=== PATIENT | female | born 1995 | race Caucasian/White ===

== ENCOUNTER 2018-12-21 16:30 | Emergency (ER) | payer OTHER ==
[2018-12-21] MEDS ORDERED: NACL 0.9% 500 ML 500 ML IV ONE (16:43)
[2018-12-21] MEDS ORDERED: TYLENOL PO ONE (16:44)
[2018-12-21] MEDS ORDERED: TYLENOL ONE (16:46)
--- NOTE | 2018-12-21 16:46 | Emergency Department Report ---
Chief Complaint: Sore Throat Stated Complaint: FLU SYMPTOMS Time Seen by Provider: 12/21/18 16:42 - HPI History of Present Illness: This is a 23 y.o. F that present to the ER with sore throat and myalgia x 3 days. Currently taking OTC cold and flu medication. LMP 11/28/18 - Exam Vital Signs: Vital Signs 12/21/18 16:41 Temperature 102.2 F H Pulse Rate 126 H Respiratory 20 Rate Blood Pressure 131/81 O2 Sat by Pulse 99 Oximetry MSE screening note: Focused history and physical exam performed. Due to findings the following was ordered: This initial assessment/diagnostic orders/clinical plan/treatment(s) is/are subject to change based on patient's health status, clinical progression and re- assessment by fellow clinical providers in the ED. Further treatment and workup at subsequent clinical providers discretion. Patient/guardians urged not to elope from the ED as their condition may be serious if not clinically assessed and managed. Initial orders include: 1- Patient sent to Main ED for further evaluation and treatment 2- Given Tylenol 975 mg po 3- Labs ED Disposition for MSE Condition: Stable
[2018-12-21 17:23] LABS: Basophils % (Auto) 0.2 % (0.0-1.8); Eosinophils % (Auto) 0.1 % (0.0-4.3); Hematocrit 39.4 % (30.3-42.9); Hemoglobin 13.5 gm/dl (10.1-14.3); Lymphocytes # (Auto) 1.3 K/mm3 (1.2-5.4); Lymphocytes % (Auto) 10.4 % (13.4-35.0); Mean Corpuscular HGB Conc 34 % (30-34); Mean Corpuscular Volume 90 fl (79-97); Monocytes # (Auto) 1.4 K/mm3 (0.0-0.8); Monocytes % (Auto) 11.1 % (0.0-7.3); Platelet Count 209 K/mm3 (140-440); Red Blood Count 4.37 M/mm3 (3.65-5.03); Red Cell Distribution Width 12.6 % (13.2-15.2)
[2018-12-21 17:31] LABS: Bilirubin,Urine NEG (Negative); Blood,Urine MOD (Negative); Color,Urine Amber (Yellow); Mucus,Urine 3+ /HPF
[2018-12-21] MEDS ORDERED: NACL 0.9% 1000 ML 1,000 ML IV ONE (17:34)
[2018-12-21] MEDS ORDERED: LIDOCAINE VISCOUS 2% PO ONE (17:34)
[2018-12-21] MEDS ORDERED: TORADOL IV ONE (17:34)
[2018-12-21] MEDS ORDERED: NACL 0.9% 1000 ML 2,000 ML IV ONE (17:34)
--- NOTE | 2018-12-21 17:35 | Emergency Department Report ---
<DENISSE DOAN - Last Filed: 12/21/18 19:49> ED General Adult HPI - General Chief complaint: Sore Throat Stated complaint: FLU SYMPTOMS Time Seen by Provider: 12/21/18 16:42 Source: patient, RN notes reviewed Mode of arrival: Ambulatory Limitations: No Limitations - History of Present Illness Initial comments: This is a 23-year-old female. The patient is not known to this provider previously. She does not have a local primary care doctor. She has no chronic medical conditions. She does not believe that she is . She presents to the emergency room with 3-4 days of sore throat, body aches, frontal headache, m alaise, fatigue, myalgias, discomfort. Symptoms present for the past 3-4 days, constant, did not radiate anywhere, decreased with IV fluids and antipyretic medication. No response with [id number] remedies. -: Gradual, days(s) Location: head, face, mouth, back, left, right, upper extremity, lower extremity Radiation: non-radiation Severity scale (0 -10): 10 Quality: aching Consistency: other Improves with: other Worsens with: other - Related Data Previous Rx's Medication Instructions Recorded Last Taken Type Acetaminophen [Non-Aspirin Extra 500 mg PO Q6HR PRN #30 tablet 12/21/18 Unknown Rx Strength] Ibuprofen [Motrin] 600 mg PO Q8H PRN #30 tablet 12/21/18 Unknown Rx Penicillin V Potassium 500 mg PO BID #20 tablet 12/21/18 Unknown Rx Allergies Allergy/AdvReac Type Severity Reaction Status Date / Time No Known Allergies Allergy Unverified 12/21/18 16:35 ED Review of Systems Constitutional: fever, malaise, weakness Eyes: denies: eye discharge ENT: throat pain, congestion Respiratory: cough Cardiovascular: denies: syncope Gastrointestinal: denies: abdominal pain Genitourinary: denies: dysuria Musculoskeletal: arthralgia, myalgia Skin: denies: lesions Neurological: headache, weakness Psychiatric: anxiety ED Past Medical Hx - Past Medical History Previous Medical History?: No - Surgical History Past Surgical History?: No - Social History Smoking Status: Never Smoker Substance Use Type: None - Medications Home Medications: Home Medications Medication Instructions Recorded Confirmed Last Taken Type Acetaminophen [Non-Aspirin Extra 500 mg PO Q6HR PRN #30 tablet 12/21/18 Unknown Rx Strength] Ibuprofen [Motrin] 600 mg PO Q8H PRN #30 tablet 12/21/18 Unknown Rx Penicillin V Potassium 500 mg PO BID #20 tablet 12/21/18 Unknown Rx ED Physical Exam - General Limitations: No Limitations General appearance: alert, in no apparent distress - Head Head exam: Present: atraumatic, normocephalic - Eye Eye exam: Present: normal appearance, EOMI. Absent: nystagmus - ENT ENT exam: Present: mucous membranes moist, TM's normal bilaterally, normal exte rnal ear exam, other (patient has erythematous and white exudates on tonsils. The patient is speaking in full sentences. There is no stridor.). Absent: normal orophraynx - Neck Neck exam: Present: normal inspection, full ROM, lymphadenopathy. Absent: tenderness, meningismus - Respiratory Respiratory exam: Present: normal lung sounds bilaterally. Absent: respiratory distress - Cardiovascular Cardiovascular Exam: Present: normal rhythm, tachycardia, normal heart sounds. Absent: systolic murmur, diastolic murmur, rubs, gallop - GI/Abdominal GI/Abdominal exam: Present: soft. Absent: distended, tenderness, guarding, rebound, rigid, pulsatile mass - Extremities Exam Extremities exam: Present: normal inspection, full ROM, other (2+ pulses noted in the bilateral upper, lower extremities. Compartments soft. No long bony tenderness. The pelvis is stable.). Absent: pedal edema, joint swelling, calf tenderness - Back Exam Back exam: Present: normal inspection, full ROM. Absent: tenderness, CVA tenderness (R), CVA tenderness (L), paraspinal tenderness, vertebral tenderness - Neurological Exam Neurological exam: Present: alert, oriented X3, normal gait, other (Extraocular movements intact. Tongue midline. No facial droop. Facial sensation intact to light touch in the V1, V2, V3 distribution bilaterally. 5 and 5 strength in 4 extremities.. Sensation is intact to light touch in 4 extremities.). Absent: motor sensory deficit - Psychiatric Psychiatric exam: Present: normal affect, normal mood - Skin Skin exam: Present: warm, dry, intact, normal color. Absent: rash ED Course - Reevaluation(s) Reevaluation #1: 12/21/18 19:51 Differential diagnosis, including not limited to: Viral syndrome, strep pharyngitis Assessment and plan: 23-year-old female with fever, tachycardia, white exudates on posterior oropharynx, lymphadenopathy, suspicious for pharyngitis. Rapid strep screen is negative, however, I find the patient to be high probability by the Cent[facility] criteria, and we will treat empirically with appropriate antibiotics. Patient has defervescence, tachycardia is improving. The patient is speaking in full sentences, with no evidence of imminent airway compromise. Urinalysis reviewed and appreciated, the patient does not endorse any urinary symptoms. She does not have any CVA tenderness. Do not clinically suspect urinary tract infection. Care will be transferred to the oncoming ER physician, Dr. Brendan Horne, to reassess and discharge once tachycardia has resolved. ED Medical Decision Making - Lab Data Result diagrams: 12/21/18 16:53 12/21/18 16:53 Vital Signs 12/21/18 12/21/18 12/21/18 16:41 17:36 17:39 Temperature 102.2 F H 103 F H Pulse Rate 126 H 131 H 130 H Respiratory 20 16 Rate Blood Pressure 131/81 Blood Pressure 124/71 [Right] O2 Sat by Pulse 99 100 Oximetry 12/21/18 12/21/18 12/21/18 17:46 18:00 18:16 Temperature Pulse Rate 123 H 124 H 118 H Respiratory 19 21 15 Rate Blood Pressure 124/71 124/71 119/67 Blood Pressure [Right] O2 Sat by Pulse 96 99 98 Oximetry 12/21/18 12/21/18 12/21/18 18:30 18:40 19:39 Temperature 100.2 F H Pulse Rate 121 H 116 H Respiratory 15 23 Rate Blood Pressure 119/67 119/77 Blood Pressure 119/77 [Right] O2 Sat by Pulse 99 98 Oximetry 12/21/18 19:41 Temperature 99.1 F Pulse Rate Respiratory Rate Blood Pressure Blood Pressure [Right] O2 Sat by Pulse Oximetry Lab Results 12/21/18 12/21/18 12/21/18 Range/Units 16:53 16:53 16:53 WBC 12.4 H (4.5-11.0) K/mm3 RBC 4.37 (3.65-5.03) M/mm3 Hgb 13.5 (10.1-14.3) gm/dl Hct 39.4 (30.3-42.9) % MCV 90 (79-97) fl MCH 31 (28-32) pg MCHC 34 (30-34) % RDW 12.6 L (13.2-15.2) % Plt Count 209 (140-440) K/mm3 Lymph % (Auto) 10.4 L (13.4-35.0) % Beltrami % (Auto) 11.1 H (0.0-7.3) % Eos % (Auto) 0.1 (0.0-4.3) % Baso % (Auto) 0.2 (0.0-1.8) % Lymph # 1.3 (1.2-5.4) K/mm3 Beltrami # 1.4 H (0.0-0.8) K/mm3 Eos # 0.0 (0.0-0.4) K/mm3 Baso # 0.0 (0.0-0.1) K/mm3 Seg Neutrophils % 78.2 H (40.0-70.0) % Seg Neutrophils # 9.7 H (1.8-7.7) K/mm3 PT 13.5 (12.2-14.9) Sec. INR 0.97 (0.87-1.13) VBG pH (7.320-7.420) Sodium 136 L (137-145) mmol/L Potassium 3.8 (3.6-5.0) mmol/L Chloride 98.3 (98-107) mmol/L Carbon Dioxide 25 (22-30) mmol/L Anion Gap 17 mmol/L BUN 9 (7-17) mg/dL Creatinine 0.4 L (0.7-1.2) mg/dL Estimated GFR > 60 ml/min BUN/Creatinine Ratio 23 % Glucose 118 H (65-100) mg/dL Lactic Acid (0.7-2.0) mmol/L Calcium 9.3 (8.4-10.2) mg/dL Total Bilirubin 0.40 (0.1-1.2) mg/dL AST 20 (5-40) units/L ALT 25 (7-56) units/L Alkaline Phosphatase 44 (35-129) units/L Total Creatine Kinase (30-135) units/L Total Protein 7.3 (6.3-8.2) g/dL Albumin 3.9 (3.9-5) g/dL Albumin/Globulin Ratio 1.1 % Urine Color (Yellow) Urine Turbidity (Clear) Urine pH (5.0-7.0) Ur Specific Cochran (1.003-1.030) Urine Protein (Negative) mg/dL Urine Glucose (UA) (Negative) mg/dL Urine Ketones (Negative) mg/dL Urine Blood (Negative) Urine Nitrite (Negative) Urine Bilirubin (Negative) Urine Urobilinogen (<2.0) mg/dL Ur Leukocyte Esterase (Negative) Urine WBC (Auto) (0.0-6.0) /HPF Urine RBC (Auto) (0.0-6.0) /HPF U Epithel Cells (Auto) (0-13.0) /HPF Urine Mucus /HPF Urine HCG, Qual (Negative) Group A Strep Rapid (Negative) 12/21/18 12/21/18 12/21/18 Range/Units 16:53 16:53 17:05 WBC (4.5-11.0) K/mm3 RBC (3.65-5.03) M/mm3 Hgb (10.1-14.3) gm/dl Hct (30.3-42.9) % MCV (79-97) fl MCH (28-32) pg MCHC (30-34) % RDW (13.2-15.2) % Plt Count (140-440) K/mm3 Lymph % (Auto) (13.4-35.0) % Bel[place]ami % (Auto) (0.0-7.3) % Eos % (Auto) (0.0-4.3) % Baso % (Auto) (0.0-1.8) % Lymph # (1.2-5.4) K/mm3 Beltrami # (0.0-0.8) K/mm3 Eos # (0.0-0.4) K/mm3 Baso # (0.0-0.1) K/mm3 Seg Neutrophils % (40.0-70.0) % Seg Neutrophils # (1.8-7.7) K/mm3 PT (12.2-14.9) Sec. INR (0.87-1.13) VBG pH 7.401 (7.320-7.420) Sodium (137-145) mmol/L Potassium (3.6-5.0) mmol/L Chloride (98-107) mmol/L Carbon Dioxide (22-30) mmol/L Anion Gap mmol/L BUN (7-17) mg/dL Creatinine (0.7-1.2) mg/dL Estimated GFR ml/min BUN/Creatinine Ratio % Glucose (65-100) mg/dL Lactic Acid 2.00 (0.7-2.0) mmol/L Calcium (8.4-10.2) mg/dL Total Bilirubin (0.1-1.2) mg/dL AST (5-40) units/L ALT (7-56) units/L Alkaline Phosphatase (35-129) units/L Total Creatine Kinase (30-135) units/L Total Protein (6.3-8.2) g/dL Albumin (3.9-5) g/dL Albumin/Globulin Ratio % Urine Color Haley (Yellow) Urine Turbidity Slightly-cloudy (Clear) Urine pH 5.0 (5.0-7.0) Ur Specific Cochran 1.031 H (1.003-1.030) Urine Protein 30 mg/dl (Negative) mg/dL Urine Glucose (UA) Neg (Negative) mg/dL Urine Ketones Neg (Negative) mg/dL Urine Blood Mod (Negative) Urine Nitrite Neg (Negative) Urine Bilirubin Neg (Negative) Urine Urobilinogen 4.0 (<2.0) mg/dL Ur Leukocyte Esterase Tr (Negative) Urine WBC (Auto) 14.0 H (0.0-6.0) /HPF Urine RBC (Auto) 16.0 (0.0-6.0) /HPF U Epithel Cells (Auto) 4.0 (0-13.0) /HPF Urine Mucus 3+ /HPF Urine HCG, Qual (Negative) Group A Strep Rapid (Negative) 12/21/18 12/21/18 12/21/18 Range/Units 17:30 17:39 19:06 WBC (4.5-11.0) K/mm3 RBC (3.65-5.03) M/mm3 Hgb (10.1-14.3) gm/dl Hct (30.3-42.9) % MCV (79-97) fl MCH (28-32) pg MCHC (30-34) % RDW (13.2-15.2) % Plt Count (140-440) K/mm3 Lymph % (Auto) (13.4-35.0) % [place] % (Auto) (0.0-7.3) % Eos % (Auto) (0.0-4.3) % Baso % (Auto) (0.0-1.8) % Lymph # (1.2-5.4) K/mm3 [place] # (0.0-0.8) K/mm3 Eos # (0.0-0.4) K/mm3 Baso # (0.0-0.1) K/mm3 Seg Neutrophils % (40.0-70.0) % Seg Neutrophils # (1.8-7.7) K/mm3 PT (12.2-14.9) Sec. INR (0.87-1.13) VBG pH (7.320-7.420) Sodium (137-145) mmol/L Potassium (3.6-5.0) mmol/L Chloride (98-107) mmol/L Carbon Dioxide (22-30) mmol/L Anion Gap mmol/L BUN (7-17) mg/dL Creatinine (0.7-1.2) mg/dL Estimated GFR ml/min BUN/Creatinine Ratio % Glucose (65-100) mg/dL Lactic Acid (0.7-2.0) mmol/L Calcium (8.4-10.2) mg/dL Total Bilirubin (0.1-1.2) mg/dL AST (5-40) units/L ALT (7-56) units/L Alkaline Phosphatase (35-129) units/L Total Creatine Kinase 44 (30-135) units/L Total Protein (6.3-8.2) g/dL Albumin (3.9-5) g/dL Albumin/Globulin Ratio % Urine Color (Yellow) Urine Turbidity (Clear) Urine pH (5.0-7.0) Ur Specific Cochran (1.003-1.030) Urine Protein (Negative) mg/dL Urine Glucose (UA) (Negative) mg/dL Urine Ketones (Negative) mg/dL Urine Blood (Negative) Urine Nitrite (Negative) Urine Bilirubin (Negative) Urine Urobilinogen (<2.0) mg/dL Ur Leukocyte Esterase (Negative) Urine WBC (Auto) (0.0-6.0) /HPF Urine RBC (Auto) (0.0-6.0) /HPF U Epithel Cells (Auto) (0-13.0) /HPF Urine Mucus /HPF Urine HCG, Qual Negative (Negative) Group A Strep Rapid Negative (Negative) - EKG Data -: EKG Interpreted by Or - EKG Data 12/21/18 19:53 EKG shows sinus tachycardia, atraumatic, borderline rightward axis, QTC within normal limits, nonspecific T-wave abnormalities, atrial enlargement? This EKG is not consistent with ST elevation myocardial infarction. There is no prior EKG available for comparison. - Radiology Data Radiology results: report reviewed, image reviewed X-ray of the chest is negative for acute disease ED Disposition Clinical Impression: Acute febrile illness, Exudative pharyngitis Disposition: TO HOME OR SELFCARE Is pt being admited?: No Does the pt Need Aspirin: No Condition: Stable Instructions: Pharyngitis (ED) Additional Instructions: Take the pain medications as needed/directed. Take antibiotic therapy as directed. Cultures was sent today, and results of the available in the next 3-5 days. Please have your primary care doctor contact the medical records department to obtain culture results. Urinalysis screen demonstrated nonspecific nonemergent abnormalities. These should be followed up by her primary care doctor or relief map modeler within the next 7-10 days. Please follow up for repeat evaluation, either at an urgent care center, with a primary care doctor, or return to this emergency room in 2-3 days for repeat checkup/evaluation. Please return to this emergency room right away with new pain, worsened pain, migration of pain, projectile vomiting, change in mental status, confusion, inability to tolerate liquid feeds, new, worsening or different symptoms. Prescriptions: Ibuprofen [Motrin] 600 mg PO Q8H PRN #30 tablet PRN Reason: Pain Acetaminophen [Non-Aspirin Extra Strength] 500 mg PO Q6HR PRN #30 tablet PRN Reason: Pain , Severe (7-10) Penicillin V Potassium 500 mg PO BID #20 tablet Referrals: [facility] [Primary Care Provider] - 3-5 Days [facility] [Provider Group] - 3-5 Days [facility] [Provider Group] - 3-5 Days <HARLAN HORNE - Last Filed: 12/21/18 21:06> ED Review of Systems ROS: Stated complaint: FLU SYMPTOMS Other details as noted in HPI ED Course Vital Signs 12/21/18 12/21/18 12/21/18 16:41 17:36 17:39 Temperature 102.2 F H 103 F H Pulse Rate 126 H 131 H 130 H Respiratory 20 16 Rate Blood Pressure 131/81 Blood Pressure 124/71 [Right] O2 Sat by Pulse 99 100 Oximetry 12/21/18 12/21/18 12/21/18 17:46 18:00 18:16 Temperature Pulse Rate 123 H 124 H 118 H Respiratory 19 21 15 Rate Blood Pressure 124/71 124/71 119/67 Blood Pressure [Right] O2 Sat by Pulse 96 99 98 Oximetry 12/21/18 12/21/18 12/21/18 18:30 18:40 19:39 Temperature 100.2 F H Pulse Rate 121 H 116 H Respiratory 15 23 Rate Blood Pressure 119/67 119/77 Blood Pressure 119/77 [Right] O2 Sat by Pulse 99 98 Oximetry 12/21/18 19:41 Temperature 99.1 F Pulse Rate Respiratory Rate Blood Pressure Blood Pressure [Right] O2 Sat by Pulse Oximetry ED Medical Decision Making - Lab Data Result diagrams: 12/21/18 16:53 12/21/18 16:53 - Medical Decision Making Karlene is a very pleasant female treated by my colleague Dr. Doan for exudative pharyngitis whichis confirmed by my brief exam. Tachycardia resolved after receiving 3 L normal saline. She had mild headache upon my reassessment but overall felt much better. She is discharged home with return precautions. Critical care attestation.: If time is entered above; I have spent that time in minutes in the direct care of this critically ill patient, excluding procedure time. ED Disposition Is pt being admited?: No Does the pt Need Aspirin: No
[2018-12-21 17:37] LABS: INR 0.97 (0.87-1.13)
[2018-12-21 17:39] LABS: Alanine Aminotransferase 25 units/L (7-56); Albumin 3.9 g/dL (3.9-5); BUN/Creatinine Ratio 23; Blood Urea Nitrogen 9 mg/dL (7-17); Calcium 9.3 mg/dL (8.4-10.2); Hemolysis Index 9
--- NOTE | 2018-12-21 18:05 | XRay Report ---
PROCEDURE: XR CHEST 1V AP TECHNIQUE: Chest radiograph single view. HISTORY: possible Sepsis COMPARISONS: None . FINDINGS: Heart: Normal. Mediastinum/Vessels: Normal. Lungs/Pleural space: Normal. Bony thorax: No acute osseous abnormality. Life support devices: None. IMPRESSION: No acute cardiopulmonary abnormality. This document is electronically signed by Martin Del Castillo MD., Dec 21 2018 06:03:24 PM ET
[2018-12-21 19:30] LABS: HCG Qualitative,Urine Negative (Negative)
[2018-12-21] MEDS ORDERED: VEETIDS PO ONE (19:57)
[2018-12-21 21:07] VITALS: BP 127/73
[2018-12-21] MEDS ORDERED: TYLENOL PO SCH (21:30)
== END 2018-12-21 21:07 | disposition home or self-care (01) ==
LOC: ED 16:30
DX: J02.9 Acute pharyngitis, unspecified (principal)
CPT/HCPCS: 36415; 71045; 80053; 81001; 81025; 82140; 82550; 82805; 85025; 85610; 87086; 87116; 87430; 93005; 93010; 96374; 99285; J1885; J7030

== ENCOUNTER 2020-03-20 13:56 | Emergency (ER) | payer SELFPAY ==
--- NOTE | 2020-03-20 14:38 | Event Note ---
ED Screening Note Date of service: 03/20/20 Time: 14:36 ED Screening Note: episode of chest pain, SOB, headache, anxiety at 1:20 that lasted 5 minutes. denies pmhx. IS taking metronidazole for BV. No OCP Denies allergies to medications. Fhx no CAD This initial assessment/diagnostic orders/clinical plan/treatment(s) is/are subject to change based on patients health status, clinical progression and re- assessment by fellow clinical providers in the ED. Further treatment and workup at subsequent clinical providers discretion. Patient/guardian urged not to elope from the ED as their condition may be serious if not clinically assessed and managed. Initial orders include: blood, EKG, chest x-ray
--- NOTE | 2020-03-20 15:47 | Emergency Department Report ---
ED Chest Pain HPI - General Chief Complaint: Chest Pain Stated Complaint: CHEST PAIN, HEADACHE,KAN Time Seen by Provider: 03/20/20 14:55 Source: patient Mode of arrival: Ambulatory Limitations: No Limitations - History of Present Illness Initial Comments: 31-year-old female patient presents with complaints of an episode of left-sided chest pain with shortness of breath x today. Patient states that she has been having intermittent episodes of chest pain for 3 to 4 months. She states today the episode was worse because it lasted longer than normal. She denies any cough, hemoptysis, fever/chills/sweats, leg pain/swelling, history of DVT/PE/cancer, hormone use, or recent long travel. She she reports at current, her pain is not present and she denies any current shortness of breath. She does admit that the episodes seem to occur when she is stressed, however she denies any previous diagnosis of anxiety. Patient reports the pain is normally left-sided or substernal and describes it as a prickling type pain. She denies any personal or family history of heart disease or structural abnormalities - Related Data Previous Rx's Medication Instructions Recorded Last Taken Type Acetaminophen [Non-Aspirin Extra 500 mg PO Q6HR PRN #30 tablet 12/21/18 Unknown Rx Strength] Ibuprofen [Motrin] 600 mg PO Q8H PRN #30 tablet 12/21/18 Unknown Rx Penicillin V Potassium 500 mg PO BID #20 tablet 12/21/18 Unknown Rx Allergies Allergy/AdvReac Type Severity Reaction Status Date / Time No Known Allergies Allergy Unverified 12/21/18 16:35 Heart Score - HEART Score History: Slightly suspicious EKG: Normal Age: < 45 Risk factors: 1-2 risk factors Troponin: < normal limit HEART Score: 1 - Critical Actions Critical Actions: 0-3 pts:0.9-1.7%risk of adverse cardiac event.Candidate for discharge ED Review of Systems ROS: Stated complaint: CHEST PAIN, HEADACHE,KAN Other details as noted in HPI Constitutional: denies: chills, diaphoresis, fever, malaise, weakness Eyes: denies: vision change Respiratory: see HPI. denies: cough Cardiovascular: denies: as per HPI, edema, syncope Gastrointestinal: denies: abdominal pain, nausea, vomiting Musculoskeletal: denies: joint swelling, arthralgia Skin: denies: change in color Neurological: denies: headache Hematological/Lymphatic: denies: swollen glands ED Past Medical Hx - Past Medical History Previous Medical History?: No - Surgical History Past Surgical History?: No - Social History Smoking Status: Never Smoker - Medications Home Medications: Home Medications Medication Instructions Recorded Confirmed Last Taken Type Acetaminophen [Non-Aspirin Extra 500 mg PO Q6HR PRN #30 tablet 12/21/18 Unknown Rx Strength] Ibuprofen [Motrin] 600 mg PO Q8H PRN #30 tablet 12/21/18 Unknown Rx Penicillin V Potassium 500 mg PO BID #20 tablet 12/21/18 Unknown Rx ED Physical Exam - General Limitations: No Limitations General appearance: alert, in no apparent distress - Head Head exam: Present: atraumatic, normocephalic - Eye Eye exam: Present: normal appearance - ENT ENT exam: Present: mucous membranes moist - Neck Neck exam: Present: normal inspection, full ROM - Respiratory Respiratory exam: Present: normal lung sounds bilaterally. Absent: respiratory distress, wheezes, rales, rhonchi, stridor, chest wall tenderness - Cardiovascular Cardiovascular Exam: Present: regular rate, normal rhythm. Absent: systolic murmur, diastolic murmur, rubs, gallop - GI/Abdominal GI/Abdominal exam: Present: soft. Absent: distended, tenderness, rebound, rigid - Extremities Exam Extremities exam: Present: normal inspection. Absent: calf tenderness (No swelling or tenderness noted to legs bilaterally) - Back Exam Back exam: Present: normal inspection. Absent: CVA tenderness (R), CVA tenderness (L) - Neurological Exam Neurological exam: Present: alert, oriented X3 - Psychiatric Psychiatric exam: Present: normal affect, normal mood - Skin Skin exam: Present: warm, dry, intact, normal color. Absent: rash ED Course Vital Signs 03/20/20 03/20/20 14:00 16:27 Temperature 98.1 F 99.0 F Pulse Rate 86 70 Respiratory 16 16 Rate Blood Pressure 145/89 Blood Pressure 122/63 [Right] O2 Sat by Pulse 97 99 Oximetry ED Medical Decision Making - Lab Data Result diagrams: 03/20/20 15:43 03/20/20 15:43 - EKG Data -: EKG Interpreted by Md EKG shows normal: sinus rhythm Rate: normal - EKG Data Interpretation: normal EKG - Radiology Data Radiology results: report reviewed CHEST 2 VIEWS INDICATION / CLINICAL INFORMATION: chest pain, SOB. COMPARISON: 12/21/18 FINDINGS: SUPPORT DEVICES: None. HEART / MEDIASTINUM: No significant abnormality. LUNGS / PLEURA: No significant pulmonary or pleural abnormality. No pneumothorax. ADDITIONAL FINDINGS: No significant additional findings. IMPRESSION: 1. No acute findings. - Medical Decision Making Patient here with complaints of an episode of left-sided chest pain and shortness of breath that lasted about 5 minutes. Reports recurrent similar episodes. CBC, CMP, and troponin are normal. EKG is normal. Chest x-ray is negative for acute findings. No abnormalities are noted on exam. PERC score = 0. Heart score = 1. Given occurrence of chest pain and shortness of breath at time of stress, suspect patient's symptoms are due to anxiety. Her vitals are normal, she is well-appearing, and stable for discharge home. Recommend follow- up with primary care for further evaluation and treatment. Strict return precautions were discussed in detail with patient who verbalizes understanding peer - Differential Diagnosis Anxiety, PE, pneumonia Critical care attestation.: If time is entered above; I have spent that time in minutes in the direct care of this critically ill patient, excluding procedure time. ED Disposition Clinical Impression: Other chest pain, Anxiety Disposition: DC-01 TO HOME OR SELFCARE Is pt being admited?: No Condition: Stable Instructions: Chest Pain (ED), Panic Disorder (ED) Referrals: [facility] [Provider Group] - 3-5 Days
[2020-03-20 16:03] LABS: Bilirubin,Urine NEG (Negative); Blood,Urine NEG (Negative); Color,Urine Straw (Yellow); Protein,Urine <15 mg/dL mg/dL (Negative); Urobilinogen,Urine < 2.0 mg/dL (<2.0)
[2020-03-20 16:07] LABS: HCG Qualitative,Urine Negative (Negative)
[2020-03-20 16:28] VITALS: BP 122/63
[2020-03-20 16:32] LABS: Basophils % (Auto) 0.4 % (0.0-1.8); Eosinophils # (Auto) 0.3 K/mm3 (0.0-0.4); Eosinophils % (Auto) 2.9 % (0.0-4.3); Hematocrit 39.5 % (30.3-42.9); Hemoglobin 13.9 gm/dl (10.1-14.3); Lymphocytes # (Auto) 2.4 K/mm3 (1.2-5.4); Lymphocytes % (Auto) 23.4 % (13.4-35.0); Mean Corpuscular HGB Conc 35 % (30-34); Mean Corpuscular Volume 90 fl (79-97); Monocytes # (Auto) 0.7 K/mm3 (0.0-0.8); Monocytes % (Auto) 7.3 % (0.0-7.3); Platelet Count 283 K/mm3 (140-440); Red Blood Count 4.38 M/mm3 (3.65-5.03); Red Cell Distribution Width 12.2 % (13.2-15.2)
[2020-03-20 16:52] LABS: Albumin 4.2 g/dL (3.9-5); Blood Urea Nitrogen 12 mg/dL (7-17); Calcium 9.3 mg/dL (8.4-10.2); Hemolysis Index 24
[2020-03-20 16:53] LABS: BUN/Creatinine Ratio 20
[2020-03-20 17:05] LABS: Alanine Aminotransferase < 5 units/L (7-56)
--- NOTE | 2020-03-20 17:08 | XRay Report ---
CHEST 2 VIEWS INDICATION / CLINICAL INFORMATION: chest pain, SOB. COMPARISON: 12/21/18 FINDINGS: SUPPORT DEVICES: None. HEART / MEDIASTINUM: No significant abnormality. LUNGS / PLEURA: No significant pulmonary or pleural abnormality. No pneumothorax. ADDITIONAL FINDINGS: No significant additional findings. IMPRESSION: 1. No acute findings. Signer Name: Minal Schafer MD Signed: 03/20/2020 5:03 PM Workstation Name: [id number]
== END 2020-03-20 17:25 | disposition home or self-care (01) ==
LOC: ED 13:56
DX: F41.9 Anxiety disorder, unspecified (principal); R07.89 Other chest pain; Z79.899 Other long term (current) drug therapy
CPT/HCPCS: 36415; 71046; 80053; 81001; 81025; 84484; 85025; 93005

== ENCOUNTER 2021-06-19 15:24 | Emergency (ER) | payer SELFPAY ==
[2021-06-19] MEDS ORDERED: dexAMETHasone 20 MG/5 ML VIAL IM ONE (15:54)
[2021-06-19] MEDS ORDERED: IBUPROFEN 600 MG TAB PO ONE (15:54)
--- NOTE | 2021-06-19 16:10 | Emergency Department Report ---
- General Chief Complaint: Upper Respiratory Infection Stated Complaint: COLD SYMPTOMS Time Seen by Provider: 06/19/21 15:48 Source: patient Mode of arrival: Ambulatory Limitations: No Limitations - History of Present Illness Initial Comments: Patient is a 25-year-old female presents emergency room complaints of left-sided ear pain that began 3 days ago. She states that her hearing feels slightly muffled but she is still able to hear. She denies anything getting into the ear. She has associated chills, sweats, fevers, headache, sore throat. She has associated discomfort with swallowing. She denies any cough, shortness of breath, vomiting, diarrhea. She states that she did have a sick contacts with some children a couple weeks ago and reports that they tested negative for COVID-19. No past medical history. No allergies to medications. Last menstrual cycle 06/17/21 - Related Data Previous Rx's Medication Instructions Recorded Last Taken Type Acetaminophen [Non-Aspirin Extra 500 mg PO Q6HR PRN #30 tablet 12/21/18 Unknown Rx Strength] Ibuprofen [Motrin] 600 mg PO Q8H PRN #30 tablet 12/21/18 Unknown Rx Penicillin V Potassium 500 mg PO BID #20 tablet 12/21/18 Unknown Rx Amoxicillin/Potassium Clav 1 each PO BID 10 Days #20 tablet 06/19/21 Unknown Rx [Augmentin 875-125 Tablet] Allergies Allergy/AdvReac Type Severity Reaction Status Date / Time No Known Allergies Allergy Unverified 12/21/18 16:35 ED Review of Systems ROS: Stated complaint: COLD SYMPTOMS Other details as noted in HPI Comment: All other systems reviewed and negative ED Past Medical Hx - Past Medical History Previous Medical History?: No - Surgical History Past Surgical History?: No - Social History Smoking Status: Never Smoker - Medications Home Medications: Home Medications Medication Instructions Recorded Confirmed Last Taken Type Acetaminophen [Non-Aspirin Extra 500 mg PO Q6HR PRN #30 tablet 12/21/18 Unknown Rx Strength] Ibuprofen [Motrin] 600 mg PO Q8H PRN #30 tablet 12/21/18 Unknown Rx Penicillin V Potassium 500 mg PO BID #20 tablet 12/21/18 Unknown Rx Amoxicillin/Potassium Clav 1 each PO BID 10 Days #20 tablet 06/19/21 Unknown Rx [Augmentin 875-125 Tablet] ED Physical Exam - General Limitations: No Limitations General appearance: alert, in no apparent distress - Head Head exam: Present: atraumatic, normocephalic - Eye Eye exam: Present: normal appearance - ENT ENT exam: Present: mucous membranes moist, other (bilateral tonsillar hypertrophy with exudates and erythema, airway is intact, uvula is midline, no uvular edema or deviation, no muffled voice, no trismus, right TM and canal are normal, left canal is normal, left TM is erythematous with draiange behind the TM, TM is intact) - Respiratory Respiratory exam: Present: normal lung sounds bilaterally. Absent: respiratory distress, wheezes, rales, rhonchi, stridor, chest wall tenderness, accessory muscle use, decreased breath sounds, prolonged expiratory - Cardiovascular Cardiovascular Exam: Present: normal rhythm, tachycardia. Absent: systolic murmur, diastolic murmur, rubs, gallop - Neurological Exam Neurological exam: Present: alert, oriented X3 - Psychiatric Psychiatric exam: Present: normal affect, normal mood - Skin Skin exam: Present: warm, dry, intact ED Course Vital Signs 06/19/21 06/19/21 06/19/21 15:24 16:06 16:28 Temperature 101.8 F H 100.5 F H Pulse Rate 127 H 127 H Respiratory 18 16 16 Rate Blood Pressure 123/76 116/73 [Left] O2 Sat by Pulse 97 97 Oximetry 06/19/21 06/19/21 17:25 18:20 Temperature 98.7 F Pulse Rate 102 H Respiratory 16 Rate Blood Pressure [Left] O2 Sat by Pulse Oximetry ED Medical Decision Making - Lab Data Vital Signs 06/19/21 06/19/21 06/19/21 15:24 16:06 16:28 Temperature 101.8 F H 100.5 F H Pulse Rate 127 H 127 H Respiratory 18 16 16 Rate Blood Pressure 123/76 116/73 [Left] O2 Sat by Pulse 97 97 Oximetry 06/19/21 06/19/21 17:25 18:20 Temperature 98.7 F Pulse Rate 102 H Respiratory 16 Rate Blood Pressure [Left] O2 Sat by Pulse Oximetry - Medical Decision Making Patient is a 25-year-old female presents emergency room complaints of left-sided ear pain that began 3 days ago. She states that her hearing feels slightly muffled but she is still able to hear. She denies anything getting into the ear. She has associated chills, sweats, fevers, headache, sore throat. She has associated discomfort with swallowing. She denies any cough, shortness of breath, vomiting, diarrhea. She states that she did have a sick contacts with some children a couple weeks ago and reports that they tested negative for COVID-19. No past medical history. No allergies to medications. Last menstrual cycle 06/17/21. Initial vitals with fever and tachycardia, given ibuprofen but continued to have fever and tachycardia, given 1 L normal saline and Tylenol and then heart rate and temperature improved. On exam:bilateral tonsillar hypertrophy with exudates and erythema, airway is intact, uvula is midline, no uvular edema or deviation, no muffled voice, no trismus, right TM and canal are normal, left canal is normal, left TM is erythematous with draiange behind the TM, TM is intact. Examination appears insistent with tonsillitis and otitis media. Patient given dexamethasone IM on the emergency department. No clinical signs of peritonsillar abscess or epiglottitis at this time, patient is maintaining her airway and tolerating p.o. intake without difficulty.. Patient given prescription for medication. Advised patient Please take medication as prescribed. Alternate Tylenol and ibuprofen as needed for fever or pain. Increase your fluid intake. Follow-up with your primary care doctor for reexamination. Return to emergency room for any new or worsening symptoms. Critical care attestation.: If time is entered above; I have spent that time in minutes in the direct care of this critically ill patient, excluding procedure time. ED Disposition Clinical Impression: Tonsillitis Otitis media Qualifiers: Otitis media type: suppurative Chronicity: acute Laterality: left Recurrence: non-recurrent Spontaneous tympanic membrane rupture: without spontaneous rupture Qualified Code(s): H66.002 - Acute suppurative otitis media without spontaneous rupture of ear drum, left ear Disposition: 01 HOME / SELF CARE / HOMELESS Is pt being admited?: No Does the pt Need Aspirin: No Condition: Stable Instructions: Tonsillitis, [id number], Otitis Media, Adult Additional Instructions: Please take medication as prescribed. Alternate Tylenol and ibuprofen as needed for fever or pain. Increase your fluid intake. Follow-up with your primary care doctor for reexamination. Return to emergency room for any new or worsening symptoms. Prescriptions: Amoxicillin/Potassium Clav [Augmentin 875-125 Tablet] 1 each PO BID 10 Days #20 tablet Referrals: DIANA BREWSTER MD [Staff Physician] - 3-5 Days [facility] [Provider Group] - 3-5 Days Time of Disposition: 18:30 Print Language: TAJIK
[2021-06-19 16:42] VITALS: BP 116/73
[2021-06-19] MEDS ORDERED: SODIUM CHLORIDE 0.9% 1000 ML 1,000 ML IV ONE (17:01)
[2021-06-19] MEDS ORDERED: ACETAMINOPHEN 325 MG TAB PO ONE (17:01)
== END 2021-06-19 18:42 | disposition home or self-care (01) ==
LOC: ED 15:24
DX: J03.90 Acute tonsillitis, unspecified (principal); H66.002 Acute suppurative otitis media without spontaneous rupture of ear drum, left ear
CPT/HCPCS: 96360; 96372; 99283; J1100; J7030; Q0162